=== PATIENT | female | born 1960 | race Caucasian/White ===

== ENCOUNTER → 2018-12-04 | Outpatient (CLI) | payer MEDICAID, SELFPAY ==
--- NOTE | 2018-12-04 11:47 | CT_ITS ---
STUDY: CT ABDOMEN AND PELVIS WITH AND WITHOUT CONTRAST REASON FOR EXAM: Female, 58 years old. Gross hematuria. Prior hysterectomy. RADIATION DOSAGE (If Supplied By Facility): CTDIvol = ( 18.89 ) mGy, DLP = ( 1189.86 ) mGycm TECHNIQUE: Transaxial images were obtained from the dome of the diaphragm to the symphysis pubis without oral contrast. 80ML IV Isovue 300 was administered. Sagittal and coronal images were reconstructed. Individualized dose optimization techniques were used for this CT. COMPARISON: None. FINDINGS: Minimal increased markings at the lung bases suggestive of linear atelectasis and/or scarring. Right coronary artery calcification. Normal liver. There are multiple small gallstones. Normal spleen. Normal pancreas. Normal bilateral adrenal glands. Normal right kidney. Normal left kidney. There is a small hiatal hernia. Normal small intestine. Moderate amount of fecal material is seen in the colon. The appendix is visualized and appears normal. There is diffuse atherosclerotic calcification of the abdominal aorta and its major visceral branches. Minimal dilatation of the distal abdominal aorta with a transverse dimension of 2.1 cm. Normal inferior vena cava. Normal retroperitoneum. Normal urinary bladder. There is absence of the uterus consistent with a prior hysterectomy. Normal abdominal wall. There are diffuse degenerative changes of the visualized lumbar spine. Straightening of the normal lumbar lordosis. CT/CT Abd/Pelvis W/WO Contrast IMPRESSION: Multiple small gallstones. Moderate amount of fecal material in the colon. No acute abnormality is seen. Electronically Signed: Farhan Maria, at 13:01 EDT , Service support ,
[2018-12-04 12:11] LABS: CREATININE FINGERSTICK 1.2 mg/dL (0.55-1.02)
== END | disposition home or self-care (01) ==
PROVIDERS: Family Provider Family Medicine; PCP Family Medicine; Referring Provider Urology; Visit Provider Urology
DX: R31.0 Gross hematuria (principal)
CPT/HCPCS: 74178; Q9967

== ENCOUNTER 2019-03-04 08:17 | Day surgery (SDC) | payer MEDICAID, SELFPAY ==
[2019-03-04] VITALS (7 sets, daily range): BP systolic 144–168; BP diastolic 65–80; PULSE 68–75; RESP 14–19; TEMP 36.1–36.7; O2SAT 95–100; BMI 23.8
--- NOTE | 2019-03-04 08:50 | CYSPIN_PTH ---
PATIENT: ALLYSSA LONG LOC: [facility] [place] U#:[id number] AGE/SX: 58/F ROOM: RE03/04/[address]: Dr. Niyah Mcdaniel MD : 1960 BED: DIS: 03/04/2019 SPEC #: [id number] RECD: 03/04/19 10:55 STATUS: LEONID REMaximilian #: [id number] STACY: 03/04/19 08:[address]: Niyah Mcdaniel DEPT: CYTOLOGY RECD BY: Bar Garcia ENTERED: 03/04/19 11:12 SP TYPE: CYSPIN FL OTHR DR: Dr. Rylan Evans MD Tissues: Urine Procedures: Pap Stain (control) Special Stain Group II Cytospin Fluid HEADER OPERATION: Right ureteroscopy with pyelograms PRE-OP DIAGNOSIS: Gross hematuria TISSUE SUBMITTED: Urine for cytology DIAGNOSIS CYTOLOGY Urine for cytology (cytospin): Positive for malignant cells consistent with urothelial carcinoma. AM:davy 03/05/19 COMMENT Case has been reviewed in consultation with Dr. Young who concurs with the above diagnosis. IDC:[facility] CYTOLOGY STUDY Slides are reviewed. CYTOLOGY GROSS Received is 5 ml of clear colorless fluid labeled with the patient's name and and designated per the requisition as urine. Submitted for cytology preparation. / 03/04/19 TC:0 CPT: 26344
[2019-03-04 09:06] LABS: Bedside Glucose 258 mg/dL (70-110)
[2019-03-04] MEDS: Lactated Ringers 1,000 ML 100 ML IV (09:08)
--- NOTE | 2019-03-04 09:08 | EKG12_ITS ---
Test Reason : PRE-OP Blood Pressure : / mmHG Vent. Rate : 071 BPM Atrial Rate : 071 BPM P-R Int : 126 ms QRS Dur : 082 ms QT Int : 426 ms P-R-T Axes : 078 060 079 degrees QTc Int : 462 ms Normal sinus rhythm Normal ECG Confirmed by SIOBHAN HOLLY ([id number]), editor city DESHAWN SANDERS ([id number]) on 03/06/2019 1:47:52 PM Referred By: Niyah Mcdaniel Confirmed By:SIOBHAN HOLLY
[2019-03-04] MEDS: Ipratropium/Albuterol Sulfate 3 ML AMPUL.NEB INHALATION (09:28)
--- NOTE | 2019-03-04 10:41 | PCM.OPRPT ---
Problem List (1) Gross hematuria Status: Acute Report of Operation Date of Procedure: 03/04/19 Pre-Operative Diagnosis: gross hematuria Surgery/Procedure Performed:: right renal pelvic mass Description of Surgical Findings:: cystoscopy, right retrograde pyelogram, right ureteroscopy Specimen's removed: cytology right renal pelvis Description of Procedure: The patient is a 58-year-old female who is noncompliant and a poor historian who has had gross hematuria on and off for at least 6 weeks. She refused to undergo a cystoscopy at first, and was able to be talked into it by her primary care physician. Informed consent was obtained and she agreed to proceed under anesthesia. She did not show up or schedule her PAT, and an EKG, breathing treatment etc. were done in the preop area. She did stop her anticoagulation and complete her preoperative antibiotics. The patient was taken to the operating room and placed on the operating room table. Anesthesia monitored the head, neck, airway, IV access and vital signs throughout the case. Once anesthesia was appropriately administered, the patient was placed into dorsal lithotomy position and was prepped and draped in usual sterile fashion. The patient has a notable cystocele present. Upon entrance of the cystoscope into the urinary bladder, the bladder mucosa was visualized in its entirety. There were no lesions, masses or areas of erythema identified within the urinary bladder. Upon further analysis the right ureteral orifice was exuding grossly bloody urine. A retrograde pyelogram revealed no filling defect in the ureter. There is a questionable defect in the renal pelvis. A 0.035 Glidewire was then passed and a flexible ureteroscopy was performed without difficulty. There is an obvious tumor with what appeared to be some blood clot within the renal pelvis. The clot and tumor appeared to be at least a centimeter in size. The equipment at my disposal did not include a working biopsy forcep or a brush for tissue analysis. Fluid from the renal pelvis was sent for further evaluation. The remainder of the ureter was clean. A stent was not left in place as there was no active bleeding, the patient was awakened and taken to the recovery room in good condition. - Complications none - Admit VTE Documentation VTE Present on Admission: Yes VTE Mechan Device Prophylaxis: SCD's VTE Pharm Prophylaxis ordered?: No Reason prophylaxis not ordered:: Treatment Not Indicated
[2019-03-04 10:51] LABS: Cytology, Body Fluid / CSF SEE PATHOLOGY REPORT
--- NOTE | 2019-03-04 11:28 | DCINST_ITS ---
Discharge Diet: No Restrictions Discharge Activity: Return to Normal Activity Call your doctor if you observe: Fever of 101 or Higher, Inability to urinate, Shortness of breath, Chest pain, Calf discomfort, Uncontrolled pain Additional Instructions: resume Eliquis today. Allergies/Adverse Reactions: Allergies Penicillins Allergy (Verified 03/04/19 09:01) Swelling propoxyphene HCl [From Darvon] Allergy (Verified 03/04/19 09:01) Swelling Medications to take at Discharge Apixaban [Eliquis] 5 mg PO BID 02/26/19 Insulin Glargine,Hum.rec.anlog [Lantus] 100 unit SUBCUT QHS 02/26/19 Losartan Potassium [Cozaar] 100 mg PO DAILY 02/26/19 Nitrofurantoin Macrocrystal [Nitrofurantoin] 500 mg PO BID 02/26/19 Primary Care Physician: Rylan Evans [Primary Care Provider] - Test Results: Test results from this visit will be discussed in further detail at your follow- up appointment, if applicable. Please Follow Up With: Niyah Mcdaniel MD When: call office for referral instructions Proposed Discharge Date: 03/04/19
[2019-03-04 16:01] LABS: Bedside Glucose 262 mg/dL (70-110)
== END 2019-03-04 12:06 | disposition home or self-care (01) ==
LOC: SDC 08:20 → AC 08:20
PROVIDERS: Family Provider Family Medicine; PCP Family Medicine; Referring Provider Urology; Visit Provider Urology
PROC: 0TBB8ZX Excision of Bladder, Via Natural or Artificial Opening Endoscopic, Diagnostic (ICD-10-PCS; CPT 52005; principal; 2019-03-04 08:40)
DX: C67.7 Malignant neoplasm of urachus (principal); R31.0 Gross hematuria; R19.00 Intra-abdominal and pelvic swelling, mass and lump, unspecified site; Z91.19 Patient's noncompliance with other medical treatment and regimen; F17.210 Nicotine dependence, cigarettes, uncomplicated; N39.41 Urge incontinence; R30.0 Dysuria
CPT/HCPCS: 00910; 52005; 76000; 82962; 88108; 88313; 93005; 94640; J7120; C1758; C1769; C2617; J2405